=== PATIENT | male | born 1995 | race Caucasian/White ===

== ENCOUNTER 2019-12-31 14:29 | Emergency (ER) | payer BC ==
[2019-12-31] MEDS ORDERED: Sodium Chloride 0.9% 10 ML Syringe FLUSH PRN (14:52)
[2019-12-31] MEDS ORDERED: Sodium Chloride 0.9% 1,000 ML IV ONE (14:52)
[2019-12-31] MEDS ORDERED: Sodium Chloride 0.9% 2.5 ML Syringe FLUSH PRN (14:52)
[2019-12-31] MEDS ORDERED: Ketorolac 15 MG/ML SDV IVPUSH ONE (14:52)
--- NOTE | 2019-12-31 14:59 | EDM.PDOC ---
ED HPI GENERAL MEDICAL PROBLEM - General Chief Complaint: General Stated Complaint: PAIN AND PRESSURE IN R SIDE Time Seen by Provider: 12/31/19 14:37 - History of Present Illness INITIAL COMMENTS - FREE TEXT/NARRATIVE: History of present illness: 29-year-old male presenting with right upper quadrant abdominal pain ongoing for the last 3 to 4 weeks. Not associated with nausea or vomiting. 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 Also somewhat worsened when he eats food. Does have some radiation to the right lower quadrant as well. No dysuria. No nausea, vomiting or diarrhea. No fevers or chills. No cough or difficulty breathing. No chest pain. Review of systems: As per history of present illness and below otherwise all systems reviewed and negative. Past medical history: As per history of present illness and as reviewed below otherwise noncontributory. Surgical history: As per history of present illness and as reviewed below otherwise noncontributory. Social history: No reported history of drug or alcohol abuse. Does chew tobacco Family history: As per history of present illness and as reviewed below otherwise noncontributory. Physical exam: GEN: no acute distress, well appearing HEENT: Atraumatic, normocephalic, mucous membranes moist, Neck: supple, nontender, trachea midline. Lungs: No respiratory distress. Heart: RRR Abdomen: Soft, right upper quadrant tenderness, also very mild right lower quadrant tenderness. No rebound or guarding. Nondistended. Back: nontender Extremities: Atraumatic. Neurovascularly intact. Neuro: Awake, alert, oriented. Neuro Exam nonfocal. Skin: warm, dry, no lesions Diagnostics: Right upper quadrant ultrasound: Shows no gallstones or cholecystitis CT abdomen/pelvis: Shows mesenteric adenitis, no acute appendicitis or other inflammation. UA negative. Therapeutics: [] MDM: Well-appearing male in no acute distress with mild somewhat labs unremarkable. UA negative. CT with possible mesenteric adenitis chronic upper abdominal pain. Consistent with patient's location of pain. Feeling well. No distress. Will discharge. Impression: [] Plan: [] Definitive disposition and diagnosis as appropriate pending reevaluation and review of above. Right Abdominal Pain Score (Numeric/FACES): 6 - Related Data Allergies Allergy/AdvReac Type Severity Reaction Status Date / Time No Known Allergies Allergy Verified 12/31/19 14:48 Home Meds: Home Meds . [No Known Home Meds] 12/31/19 [History] Past Medical History - Past Health History Medical/Surgical History: Denies Medical/Surgical History - Infectious Disease History Infectious Disease History: Reports: None - Past Surgical History Other Endocrine Surgeries/Procedures: Shoulder sugery, left and right. Social & Family History - Family History Family Medical History: Noncontributory - Tobacco Use Years of Tobacco use: 10 - Caffeine Use Caffeine Use: Reports: Coffee - Recreational Drug Use Recreational Drug Use: No ED ROS GENERAL - Review of Systems Review Of Systems: See Below (See dictation) ED EXAM, GENERAL - Physical Exam Exam: See Below (See dictation) Course - Vital Signs Last Recorded V/S: Last Vital Signs Temp 98.5 F 12/31/19 14:48 Pulse 88 12/31/19 18:48 Resp 17 12/31/19 18:48 BP 138/72 12/31/19 18:48 Pulse Ox 98 12/31/19 18:48 - Orders/Labs/Meds Orders: Active Orders 24 hr Category Date Time Status Sodium Chloride 0.9% [Saline Flush] Med 12/31/19 14:52 Active 10 ml FLUSH ASDIRECTED PRN Sodium Chloride 0.9% [Saline Flush] Med 12/31/19 14:52 Active 2.5 ml FLUSH ASDIRECTED PRN Saline Lock Insert [OM.PC] Stat Oth 12/31/19 14:52 Ordered Medication Orders Sodium Chloride (Saline Flush) 10 ml FLUSH ASDIRECTED PRN PRN Reason: Keep Vein Open Last Admin: 12/31/19 15:05 Dose: 10 ml Sodium Chloride (Saline Flush) 2.5 ml FLUSH ASDIRECTED PRN PRN Reason: Keep Vein Open Last Admin: 12/31/19 15:05 Dose: 2.5 ml Labs: Laboratory Tests 12/31/19 12/31/19 12/31/19 Range/Units 15:10 15:10 17:55 WBC 9.50 (4.0-11.0) K/uL RBC 5.55 (4.50-5.90) M/uL Hgb 17.0 (13.0-17.0) g/dL Hct 47.7 (38.0-50.0) % MCV 85.9 (80.0-98.0) fL MCH 30.6 (27.0-32.0) pg MCHC 35.6 (31.0-37.0) g/dL RDW Std Deviation 40.5 (28.0-62.0) fl RDW Coeff of Roseann 13 (11.0-15.0) % Plt Count 291 (150-400) K/uL MPV 9.90 (7.40-12.00) fL Neut % (Auto) 66.5 (48.0-80.0) % Lymph % (Auto) 23.4 (16.0-40.0) % [place] % (Auto) 7.9 (0.0-15.0) % Eos % (Auto) 1.8 (0.0-7.0) % Baso % (Auto) 0.4 (0.0-1.5) % Neut # (Auto) 6.3 H (1.4-5.7) K/uL Lymph # (Auto) 2.2 (0.6-2.4) K/uL [place] # (Auto) 0.8 (0.0-0.8) K/uL Eos # (Auto) 0.2 (0.0-0.7) K/uL Baso # (Auto) 0.0 (0.0-0.1) K/uL Nucleated RBC % 0.0 /100WBC Nucleated RBCs # 0 K/uL Sodium 142 (136-148) mmol/L Potassium 3.6 (3.5-5.1) mmol/L Chloride 103 (98-107) mmol/L Carbon Dioxide 27.6 (21.0-32.0) mmol/L BUN 13 (7.0-18.0) mg/dL Creatinine 1.2 (0.8-1.3) mg/dL Est Cr Clr Drug Dosing 95.74 mL/min Estimated GFR (MDRD) > 60.0 ml/min Glucose 101 (74-106) mg/dL Calcium 9.7 (8.5-10.1) mg/dL Total Bilirubin 1.3 H (0.2-1.0) mg/dL AST 24 (15-37) IU/L ALT 48 (14-63) IU/L Alkaline Phosphatase 50 (46-116) U/L Total Protein 7.7 (6.4-8.2) g/dL Albumin 4.7 (3.4-5.0) g/dL Globulin 3.0 (2.6-4.0) g/dL Albumin/Globulin Ratio 1.6 (0.9-1.6) Lipase 124 (73-393) U/L Urine Color YELLOW Urine Appearance CLEAR Urine pH 7.5 (5.0-8.0) Ur Specific [place] 1.015 (1.001-1.035) Urine Protein NEGATIVE (NEGATIVE) mg/dL Urine Glucose (UA) NEGATIVE (NEGATIVE) mg/dL Urine Ketones NEGATIVE (NEGATIVE) mg/dL Urine Occult Blood TRACE-INTACT H (NEGATIVE) Urine Nitrite NEGATIVE (NEGATIVE) Urine Bilirubin NEGATIVE (NEGATIVE) Urine Urobilinogen 0.2 (<2.0) EU/dL Ur Leukocyte Esterase NEGATIVE (NEGATIVE) Urine RBC 0-2 (0-2/HPF) Urine WBC 0-2 (0-5/HPF) Ur Epithelial Cells RARE (NONE-FEW) Amorphous Sediment LIGHT (NEGATIVE) Urine Bacteria FEW (NEGATIVE) Meds: Medications Generic Name Dose Route Start Last Admin Trade Name Freq PRN Reason Stop Dose Admin Sodium Chloride 10 ml 12/31/19 14:52 12/31/19 15:05 Saline Flush FLUSH 10 ml ASDIRECTED PRN Administration Keep Vein Open Sodium Chloride 2.5 ml 12/31/19 14:52 12/31/19 15:05 Saline Flush FLUSH 2.5 ml ASDIRECTED PRN Administration Keep Vein Open Discontinued Medications Generic Name Dose Route Start Last Admin Trade Name Freq PRN Reason Stop Dose Admin Sodium Chloride 1,000 mls @ 999 mls/hr 12/31/19 14:52 12/31/19 15:04 Normal Saline IV 12/31/19 15:52 999 mls/hr .Bolus ONE Administration Iopamidol 100 ml 12/31/19 16:41 12/31/19 16:41 Isovue-370 (76%) IVPUSH 12/31/19 16:42 100 ml ONETIME ONE Administration Ketorolac Tromethamine 15 mg 12/31/19 14:52 12/31/19 15:04 Toradol IVPUSH 12/31/19 14:53 15 mg ONETIME ONE Administration - Re-Assessments/Exams Free Text/Narrative Re-Assessment/Exam: 12/31/19 18:50 Patient seen and in no acute distress on repeat reassessment. Labs/CT/ultrasound all discussed with patient on prior re-evaluations and again on this reevaluation. Patient in no pain. Departure - Departure Time of Disposition: 18:52 Disposition: Home, Self-Care 01 Clinical Impression: Mesenteric adenitis Abdominal pain Qualifiers: Abdominal location: right lower quadrant Qualified Code(s): R10.31 - Right lower quadrant pain - Discharge Information Instructions: Abdominal Pain, Adult, [id number], Mesenteric Adenitis, Adult Referrals: PCP,None [Primary Care Provider] - Forms: ED Department Discharge Additional Instructions: The following information is given to patients seen in the emergency department who are being discharged to home. This information is to outline your options for follow-up care. We provide all patients seen in our emergency department with a follow-up referral. The need for follow-up, as well as the timing and circumstances, are variable depending upon the specifics of your emergency department visit. If you don't have a primary care physician on staff, we will provide you with a referral. We always advise you to contact your personal physician following an emergency department visit to inform them of the circumstance of the visit and for follow-up with them and/or the need for any referrals to a consulting specialist. The emergency department will also refer you to a specialist when appropriate. This referral assures that you have the opportunity for follow-up care with a specialist. All of these measure are taken in an effort to provide you with optimal care, which includes your follow-up. Under all circumstances we always encourage you to contact your private physician who remains a resource for coordinating your care. When calling for follow-up care, please make the office aware that this follow-up is from your recent emergency room visit. If for any reason you are refused follow-up, please contact the [facility] Emergency Department at and asked to speak to the emergency department charge nurse. [facility] [address] [place] [id number] [address] Sepsis Event Note (ED) - Evaluation Sepsis Screening Result: No Definite Risk - Focused Exam Vital Signs: Vital Signs Temp Pulse Resp BP Pulse Ox 12/31/19 18:48 88 17 138/72 98 12/31/19 16:55 96 16 138/76 98 12/31/19 14:48 98.5 F 111 H 16 162/115 H 96 - My Orders Last 24 Hours: My Active Orders 12/31/19 14:52 Sodium Chloride 0.9% [Saline Flush] 10 ml FLUSH ASDIRECTED PRN Sodium Chloride 0.9% [Saline Flush] 2.5 ml FLUSH ASDIRECTED PRN Saline Lock Insert [OM.PC] Stat - Assessment/Plan Last 24 Hours: My Active Orders 12/31/19 14:52 Sodium Chloride 0.9% [Saline Flush] 10 ml FLUSH ASDIRECTED PRN Sodium Chloride 0.9% [Saline Flush] 2.5 ml FLUSH ASDIRECTED PRN Saline Lock Insert [OM.PC] Stat
[2019-12-31 15:49] LABS: BLOOD UREA NITROGEN,BUN 13 mg/dL (7.0-18.0); CARBON DIOXIDE,CO2 27.6 mmol/L (21.0-32.0); CHLORIDE,CL 103 mmol/L (98-107); GLUCOSE RANDOM 101 mg/dL (74-106); LIPASE 124 U/L (73-393); POTASSIUM,K 3.6 mmol/L (3.5-5.1); SODIUM,NA 142 mmol/L (136-148)
--- NOTE | 2019-12-31 16:18 | US ---
INDICATION: Right upper quadrant abdomen pain TECHNIQUE: Ultrasound abdomen limited. Sonographic images of the right upper quadrant were obtained using leon-scale and color Doppler images. COMPARISON: None FINDINGS: Liver: Normal in size and echotexture. No masses. No intrahepatic biliary dilatation. Gallbladder: No stones or sludge. Normal wall thickness. No pericholecystic fluid. Common bile duct: 3 mm. Pancreas: Normal. Right kidney: Normal in size. Normal echotexture and cortex. No suspicious masses, stones, or hydronephrosis. Vasculature: Proximal abdominal aorta and IVC are normal. IMPRESSION: Unremarkable right upper quadrant ultrasound. Dictated by Jean Díaz MD @ Dec 31 2019 4:14PM Signed by Dr. Jean Díaz @ Dec 31 2019 4:16PM
[2019-12-31] MEDS ORDERED: Iopamidol 755 Mg/ML 100 ML Bottle IVPUSH ONE (16:41)
--- NOTE | 2019-12-31 17:22 | CT ---
INDICATION: Right lower quadrant tenderness TECHNIQUE: CT abdomen and pelvis acquired with 100 mL Isovue 370 IV contrast. COMPARISON: None FINDINGS: Lower chest: Unremarkable. Liver: Unremarkable. Spleen: Unremarkable. Pancreas: Unremarkable. Gallbladder and bile ducts: Unremarkable. Kidneys: Unremarkable. Adrenal glands: Unremarkable. GI tract: Unremarkable. Appendix is normal. Vascular structures: Negative. No sign of aneurysm. Lymph nodes: A focal conglomeration of nodes can be seen on images 69 through 73 of series 201 within the right abdomen. These are slightly enlarged, but no other adenopathy is seen. This measures about 3.4 cm in AP dimension, and is approximately 1.4 cm transversely. Miscellaneous: Unremarkable. No free air or significant free fluid. Pelvic Organs: Unremarkable. 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 Otherwise no significant osseous abnormalities. IMPRESSION: 1. No acute abnormalities identified. 2. There is a focal conglomeration of lymph nodes in the right mid abdomen, nonspecific. Minor mesenteric adenitis is a possibility. 3. 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 Please note that all CT scans at this facility use dose modulation, iterative reconstruction, and/or weight-based dosing when appropriate to reduce radiation dose to as low as reasonably achievable. Dictated by Beau Castellon MD @ Dec 31 2019 5:07PM Signed by Dr. Beau Castellon @ Dec 31 2019 5:19PM
== END 2019-12-31 19:10 | disposition home or self-care (01) ==
LOC: MW.ED 14:29
DX: I88.0 Nonspecific mesenteric lymphadenitis (principal)
CPT/HCPCS: 36415; 74177; 76705; 80053; 81001; 83690; 85025; 96374; 99284; J1885; J7030; Q9967